=== PATIENT | male | born 1980 | race African-American/Black ===

== ENCOUNTER 2018-01-27 10:42 | Emergency (ER) | payer MEDICAID, OTHER ==
[~2018-01-27] VITALS: Ht 180.3 cm; Wt 80.0 kg
[2018-01-27] MEDS ORDERED: IBUPROFEN 400MG TABLET PO ONE (11:00)
[2018-01-27 11:52] LABS: EOSINOPHILS % 1.7 % (0.0-5.0); HEMATOCRIT. 42.8 % (42.0-52.0); HEMOGLOBIN. 14.2 g/dL (14.0-18.0); LYMPHOCYTES % 28.5 % (20.0-50.0); MEAN CORPUSCULAR HEMOGLOBIN 30.4 pg (28.0-32.0); MEAN CORPUSCULAR VOLUME 91.7 fL (80.0-94.0); MEAN PLATELET VOLUME 7.2 fl (7.4-10.4); MONOCYTES % 9.7 % (2.0-8.0); NEUTROPHILS % 59.1 % (40.0-76.0); PLATELET 285 x1000/uL (130-400); RED BLOOD CELL COUNT 4.66 mill/uL (4.7-6.1); RED CELL DISTRIBUTION WIDTH 15.4 % (11.6-14.6)
[2018-01-27 12:00] LABS: CHLORIDE 105 mEq/L (98-107); PROTHROMBIN TIME 10.6 sec (9.4-11.6)
[2018-01-27] MEDS ORDERED: IOHEXOL-350 100 ML BOTTLE ONE (14:32)
[2018-01-27 14:35] VITALS: BP 137/75
== END 2018-01-27 16:11 | disposition home or self-care (01) ==
LOC: ER 10:56
DX: R07.89 Other chest pain (principal); Y04.0XXA Assault by unarmed brawl or fight, initial encounter; Y93.89 Activity, other specified; Y92.89 Other specified places as the place of occurrence of the external cause; R94.31 Abnormal electrocardiogram [ECG] [EKG]; R03.0 Elevated blood-pressure reading, without diagnosis of hypertension; E80.6 Other disorders of bilirubin metabolism; F12.90 Cannabis use, unspecified, uncomplicated; F17.210 Nicotine dependence, cigarettes, uncomplicated; Z71.6 Tobacco abuse counseling; Z86.711 Personal history of pulmonary embolism; Z79.01 Long term (current) use of anticoagulants
CPT/HCPCS: 36415; 71045; 71275; 80053; 83880; 84484; 85025; 85610; 93005; 99285; 99406; Q9967

== ENCOUNTER 2021-03-24 19:26 | Emergency (ER) | payer MEDICAID, OTHER ==
[~2021-03-24] VITALS: Ht 180.3 cm; Wt 82.0 kg
[2021-03-24 19:28] VITALS: BP 118/96
[2021-03-25] MEDS ORDERED: ACET-2708 MT (03:40)
[2021-03-25] MEDS ORDERED: NAPR-1176 MT (03:40)
== END 2021-03-24 20:50 | disposition left against medical advice (07) ==
LOC: ER 19:26
DX: M54.9 Dorsalgia, unspecified (principal); Z53.21 Procedure and treatment not carried out due to patient leaving prior to being seen by health care provider

== ENCOUNTER 2021-03-24 23:43 | Emergency (ER) | payer MEDICAID, OTHER ==
[~2021-03-24] VITALS: Ht 180.3 cm; Wt 82.0 kg
[2021-03-25] MEDS ORDERED: ACETAMINOPHEN 325MG TABLET PO ONE (00:45)
[2021-03-25] MEDS ORDERED: IBUPROFEN 600MG TABLET PO ONE (00:45)
[2021-03-25] MEDS ORDERED: NAPR-1176 MT (03:40)
[2021-03-25] MEDS ORDERED: ACET-2708 MT (03:40)
[2021-03-25 04:11] VITALS: BP 135/78
== END 2021-03-25 04:12 | disposition home or self-care (01) ==
LOC: ER 23:43
DX: S20.20XA Contusion of thorax, unspecified, initial encounter (principal); M79.671 Pain in right foot; F12.10 Cannabis abuse, uncomplicated; Z98.890 Other specified postprocedural states; V43.52XA Car driver injured in collision with other type car in traffic accident, initial encounter; Y93.89 Activity, other specified; Y92.488 Other paved roadways as the place of occurrence of the external cause
CPT/HCPCS: 71101; 73610; 73630; 99284

== ENCOUNTER 2023-03-25 23:26 | Emergency (ER) | payer MEDICAID, OTHER ==
[~2023-03-25] VITALS: Ht 177.8 cm; Wt 81.5 kg
[~2023-03-25 23:26] MED LIST: ACET-2708 MT; NAPR-1176 MT
[2023-03-25 23:54] VITALS: BP 120/84; PULSE 78; RESP 18; TEMP 98.5; O2SAT 99
[2023-03-26] MEDS ORDERED: DIPHENHYDRAMINE 25MG CAPSULE PO ONE (01:30)
[2023-03-26] MEDS ORDERED: FAMOTIDINE 20MG TABLET PO ONE (01:30)
[2023-03-26] MEDS ORDERED: DEXAMETHASONE 10 MG/ML VIAL PO ONE (01:30)
[2023-03-26] MEDS ORDERED: HYDR28GE TP (01:35)
[2023-03-26] MEDS ORDERED: DEXAMETHASONE 10 MG/ML VIAL PO NR (01:45)
[2023-03-26] MEDS ORDERED: DIPHENHYDRAMINE 25MG CAPSULE PO NR (01:45)
== END 2023-03-26 03:00 | disposition home or self-care (01) ==
LOC: ER 23:26
DX: L50.9 Urticaria, unspecified (principal)
CPT/HCPCS: 99283; Q0163; J1100

== ENCOUNTER 2024-02-20 15:12 | Emergency (ER) | payer MEDICAID, OTHER ==
[~2024-02-20] VITALS: Ht 175.3 cm; Wt 75.0 kg
[~2024-02-20 15:12] MED LIST changes: +HYDR28GE5 TP
[2024-02-20 15:15] VITALS: PULSE 110; RESP 18
[2024-02-20 15:28] VITALS: BP 98/59; TEMP 98.8; O2SAT 100
[2024-02-20] MEDS: LORATADINE 10MG TABLET PO SCH (17:15)
[2024-02-20] MEDS: FAMOTIDINE 20MG TABLET PO ONE (17:15)
[2024-02-20] MEDS: PREDNISONE 20MG TABLET PO ONE (17:15)
[2024-02-20] MEDS ORDERED: LORA10TA7 MT (17:32)
[2024-02-20] MEDS ORDERED: PRED10TA23 MT (17:32)
[2024-02-20] MEDS ORDERED: FAMOTIDINE 20MG TABLET PO SCH (21:00)
== END 2024-02-20 18:47 | disposition home or self-care (01) ==
LOC: ER 15:12
DX: L50.9 Urticaria, unspecified (principal); R21 Rash and other nonspecific skin eruption; F12.10 Cannabis abuse, uncomplicated; Z79.899 Other long term (current) drug therapy
CPT/HCPCS: 99284; J7512